=== PATIENT | male | born 1930 | race Caucasian/White ===

== ENCOUNTER 2017-03-30 06:38 | Inpatient (IN) | payer OTHER ==
[~2017-03-30] VITALS: Ht 177.8 cm; Wt 77.7 kg
--- NOTE | ~2017-03-30 | PR ---
[place], [place] PROGRESS NOTE NAME: [id number] UNIT #: [id number] ROOM: 404 DOCTOR: DALTON ROMERO MD BIRTHDATE: [birth year] DOS: SUBJECTIVE: The patient is sitting up in chair. Denies any specific cardiac complaint. No chest pain, no chest pressure, no symptomatic palpitation, no shortness of breath. OBJECTIVE: VITAL SIGNS: Blood pressure is 154/77, heart rate 69, respiratory rate of 14 and temperature 97.2. NECK: Good upstroke, no bruit. HEART: S1, S2 with no rub. LUNGS: Clear to auscultation. EXTREMITIES: Lower extremities, there is no edema. LABORATORY DATA: White count 5.4, hemoglobin 14.5. Hemoglobin A1c is 5.1. GFR more than 60%. Normal liver function test. TSH 5.370. CPK and CK-MB are normal. Troponin measure 0.9, then 0.9, then 0.7, then 0.5 and then 0.3. Echocardiogram confirmed normal LV function with no evidence of wall motion abnormalities. ASSESSMENT AND PLAN: The patient presentation with feeling weak and tired, having no energy. Cardiac enzymes showed a slightly elevated troponin with normal CK-MB. The patient's echocardiogram showed normal LV function with no evidence of wall motion abnormalities. Given the patient's age and frail status, I will manage medically and we will continue with Coreg at current dose. The patient's heart rate does not allow further titration. I will add Imdur 30 mg once a day. No further cardiac testing will be pursued at this time. The patient can be discharged home from a cardiac point of view. Early follow up with us in the clinic within 2-4 weeks as an outpatient. DALTON ROMERO MD CM:WILFRID [id number] [phone] DALTON ROMERO MD 03/31/171056 interface
--- NOTE | ~2017-03-30 | CON ---
[place], [place] REPORT OF CONSULTATION NAME: ALEJANDRO GILBERT UNIT #: [id number] ROOM: 404 DOCTOR: HEATHER FRASERDALTON BIRTHDATE: [birth year] DOS: 03/30/2017 REQUESTING PHYSICIAN: Dr. Ash. REASON FOR CONSULTATION: Abnormal cardiac enzymes. ASSESSMENT: 1. Current presentation for feeling not well/"I'm hurting." 2. Elevated troponin with normal CPK and MB 3. History of cerebrovascular accident. 4. History of deep venous thrombosis. 5. Hypertension. 6. Dementia (The patient is a poor historian and most of the history taken from his ). 7. History of abdominal aortic aneurysm repair in [address] Quesada. 8. Status post IVC filter following the patient's DVT. PLAN: 1. Cycle cardiac enzymes. 2. Proceed with echocardiogram for a wall motion abnormality and LV function. 3. Check sed rate, CBC. 4. No further cardiac testing at this time. 5. We will pursue a conservative management in view of the patient's advanced age and clinical status and current history of dementia. HISTORY AND PHYSICAL: The patient is a pleasant 86-year-old gentleman well known to my practice. The patient carries history of DVT and IVC filter. The patient was brought in to the hospital by his after getting up this morning and claiming like he does not feel well and requesting to be present to the hospital. On presentation, the patient was found out to have a slightly elevated troponin and subsequently was admitted. At no time, he had any complaint of chest pain, chest pressure, heaviness or tightness. The patient never voiced any symptomatic palpitation. He has a very limited functional capacity and confined to the house, but still within his usual normal limits. There is no change in what he could do now compared with 6 months ago. No reported fever, chills or night sweats. No dizziness, lightheadedness or near syncope. There is no PND, orthopnea or pedal edema. Overall, his appetite is still the same. No cough, no fever, no chills, no night sweats. PAST MEDICAL HISTORY: As detailed in my assessment. SOCIAL HISTORY: No current tobacco, alcohol, or illicit drug abuse. FAMILY HISTORY: Not applicable in view of patient's age. CURRENT MEDICATIONS: Vitamin D, Zoloft, Plavix, aspirin, Coreg, Rocephin. ALLERGIES: The patient is allergic to PENICILLIN and SULFA. REVIEW OF SYSTEMS: Not performed. The patient though denies any headache, [place], [place] REPORT OF CONSULTATION NAME: ALEJANDRO GILBERT UNIT #: [id number] ROOM: 404 DOCTOR: DALTON ROMERO MD BIRTHDATE: [birth year] diplopia or blurry vision. No fever, no chills, no night sweats. No abdominal pain, no bright blood per rectum, no tarry stools. The patient admits to joint pain and muscular pain. No reported anxiety or depression. No polyuria, no polydipsia, no skin rash. Review of all other systems has been negative. PHYSICAL EXAMINATION: GENERAL: The patient is alert, oriented x3, quite pleasant. He is sitting up in a chair, does not appear in any distress. VITAL SIGNS: Blood pressure 149/80, heart rate 54, respiratory rate of 14, temperature 98. HEENT: Extraocular muscles intact. Pupils equal, round, reactive to light. Conjunctivae, present pallor. Throat: No petechiae. NECK: Good upstroke. Bruits could be heard over the carotids. HEART: S1, S2 with holosystolic murmur in the left upper sternal border. CHEST AND BACK: No deformities. LUNGS: Significant decreased air movement, but no salma wheezing or rales. ABDOMEN: Soft, nontender, present bowel sounds, no masses, no bruits. LOWER EXTREMITIES: There is no edema, with faint distal pulses. NEUROLOGIC: Grossly nonfocal. SKIN: No significant rash. Electrocardiogram showed normal sinus rhythm, heart rate of 61. There is poor R-wave progression, mild nonspecific ST-T changes, low voltage QRS. LABORATORY DATA: D-dimer of 13. White count 6.1, hemoglobin 15.7, potassium 4.3, creatinine is 1.06, BUN 14. GFR more than 60%. Troponin 0.955. ProBNP 815. Repeat troponin 0.97 and subsequent repeat 0.75. Normal CPK and MB. Lipase 592. DALTON ROMERO MD CM:CONSTR:REPORT OF CONSULTATION 1609 03/31/17 0019 interface
[~2017-03-30 06:38] MED LIST: ALDACTONE25 MG PO; ASPIR 8181 MG PO; CARVEDILOL6.25 MG PO; CIPRO500 MG PO; CLINDAMYCIN300 MG PO; COLACE100 MG PO; COREG12.5 MG PO; DIFLUCAN100 MG PO; DUONEB 3 MG/3 ML3 M1 INH; K-DUR 20MEQ20 MEQ PO; LANOXIN0.125 MG PO; LIPITOR10 MG PO; LOVENOX EASYINJ1 DEV SC; MIRALAX17 GM/DOSE PO; NORVASC5 MG; PERCOCET 500 MG1 TAB PO; PLAVIX75 MG PO; SERTRALINE HYDR25 MG PO; TERAZOSIN5 MG; TYLENOL325 M2 PO; VITAMIN D-32000 UNIT PO; VITAMIN D50000 I3 PO; XANAX0.25 MG PO; ZOCOR20 MG PO; ZOCOR40 MG PO; ZOFRAN4 MG PO; ZOLOFT25 MG PO
[2017-03-30 06:43] VITALS: BP 191/93
[2017-03-30 07:09] LABS: BILIRUBIN NEGATIVE (NEGATIVE); BLOOD 2+ (NEGATIVE); CLARITY CLEAR (CLEAR); COLOR YELLOW (YELLOW); GLUCOSE NEGATIVE (NEGATIVE); KETONE NEGATIVE (NEGATIVE); LEUKO ESTERASE 1+ (NEGATIVE); NITRITE NEGATIVE (NEGATIVE); PH 6.5 (5.0-9.0); PROTEIN 1+ (NEGATIVE); SPECIFIC GRAVITY 1.015 (1.005-1.030); UROBILINOGEN 0.2 E.U./dl (0.2-1.0)
[2017-03-30 07:11] LABS: BASO % 0.7 % (0.0-1.0); EOS # 0.3 10*3/uL (0.0-0.4); EOS % 4.4 % (1.0-4.0); HEMATOCRIT 47.2 % (42.0-52.0); HEMOGLOBIN 15.7 g/dl (14.0-18.0); LYMPH % 16.7 % (27.0-41.0); MEAN CELL VOLUME 93.3 fl (80.0-94.0); MEAN CORPUSCULAR HGB CONC 33.3 g/dl (33.0-37.0); MEAN PLATELET VOLUME 10.3 fl (9.6-12.3); MONO # 0.5 10*3/uL (0.1-1.0); MONO % 8.2 % (3.0-9.0); NEUT # 4.3 10*3/uL (2.3-7.9); NEUT % 69.7 % (47.0-73.0); PLATELET COUNT AUTOMATED 134 10*3/uL (130-400); RED BLOOD COUNT 5.06 10*6/uL (4.50-5.90); RED CELL DISTRI WIDTH 13.2 % (0-14.5); WHITE BLOOD COUNT 6.1 10*3/uL (4.8-10.8)
[2017-03-30 07:20] LABS: PROTHROMBIN TIME 10.3 SECONDS (9.0-12.4)
[2017-03-30 07:21] LABS: URINE REFLEX COMMENT YES (NO)
[2017-03-30 07:24] VITALS: BP 184/86
[2017-03-30 07:29] LABS: ALBUMIN 3.7 gm/dl (3.1-4.5); ALKALINE PHOSPHATASE 130 U/L (45-117); BILIRUBIN, TOTAL 0.4 mg/dl (0.2-1.0); BUN 14 mg/dl (7-24); CARBON DIOXIDE 33 mmol/L (21-32); CHLORIDE 105 mmol/L (98-107); EST GLOM FILT AFRICAN AMERICAN > 60 ml/min; GLUCOSE 91 mg/dL (65-99); POTASSIUM 4.3 mmol/L (3.5-5.1); SGOT/AST 23 IU/L (3-35); SGPT/ALT 16 U/L (12-78); SODIUM 141 mmol/L (136-145); TOTAL PROTEIN 7.6 gm/dL (6.4-8.2)
[2017-03-30 07:34] LABS: TROPONIN I 0.955 ng/ml (<0.045)
[2017-03-30 08:40] VITALS: BP 181/80
[2017-03-30 11:02] LABS: CKMB 3.3 ng/ml (0.5-3.6)
[2017-03-30 12:00] VITALS: BP 163/66
[2017-03-30 16:00] VITALS: BP 149/80
[2017-03-30 16:40] LABS: CKMB 2.9 ng/ml (0.5-3.6)
[2017-03-30 16:42] LABS: TROPONIN I 0.568 ng/ml (<0.045)
[2017-03-30 20:00] VITALS: BP 155/90
[2017-03-30 22:25] LABS: CKMB 2.3 ng/ml (0.5-3.6)
[2017-03-30 22:29] LABS: TROPONIN I 0.353 ng/ml (<0.045)
[2017-03-31] VITALS: BP 154/77
[2017-03-31 06:12] LABS: BASO % 0.7 % (0.0-1.0); EOS # 0.2 10*3/uL (0.0-0.4); EOS % 3.2 % (1.0-4.0); HEMATOCRIT 42.6 % (42.0-52.0); HEMOGLOBIN 14.5 g/dl (14.0-18.0); LYMPH # 1.1 10*3/uL (1.3-4.4); LYMPH % 21.2 % (27.0-41.0); MEAN CORPUSCULAR HGB 31.7 pg (27.0-31.0); MEAN PLATELET VOLUME 10.6 fl (9.6-12.3); MONO # 0.4 10*3/uL (0.1-1.0); NEUT # 3.6 10*3/uL (2.3-7.9); NEUT % 66.7 % (47.0-73.0); PLATELET COUNT AUTOMATED 126 10*3/uL (130-400); RED BLOOD COUNT 4.58 10*6/uL (4.50-5.90); RED CELL DISTRI WIDTH 13.2 % (0-14.5); WHITE BLOOD COUNT 5.4 10*3/uL (4.8-10.8)
[2017-03-31 06:33] LABS: HEMOGLOBIN A1c 5.1 % (4.8-5.6)
[2017-03-31 06:42] LABS: ALBUMIN 3.3 gm/dl (3.1-4.5); BILIRUBIN, TOTAL 0.5 mg/dl (0.2-1.0); BUN 12 mg/dl (7-24); CARBON DIOXIDE 30 mmol/L (21-32); CHLORIDE 104 mmol/L (98-107); CHOLESTEROL 174 mg/dL (<200); EST GLOM FILT AFRICAN AMERICAN > 60 ml/min; GLUCOSE 85 mg/dL (65-99); SGOT/AST 23 IU/L (3-35); SGPT/ALT 14 U/L (12-78); SODIUM 141 mmol/L (136-145); TRIGLYCERIDES 144 mg/dl (<150); VLDL CHOLESTEROL 29 mg/dL (6-40)
[2017-03-31 06:50] LABS: ALKALINE PHOSPHATASE 111 U/L (45-117); FREE T4 0.89 ng/dl (0.76-1.46); HDL CHOLESTEROL 32 mg/dl (40-60); LDL CHOLESTEROL 113 mg/dL (9-159); TOTAL PROTEIN 6.8 gm/dL (6.4-8.2)
[2017-03-31 12:00] VITALS: BP 162/74
[2017-03-31 13:09] LABS: FOLIC ACID 6.16 ng/mL (>5.38); VITAMIN D, 25-HYDROXY 38.2 ng/mL (30-100)
== END 2017-03-31 14:03 | disposition short-term general hospital (02) | DRG 690 ==
LOC: ED 06:38 → EDHOLD 07:57 → 4E 07:57
PROVIDERS: Emergency Medicine Emergency Medical Services; Internal Medicine; Internal Medicine Cardiovascular Disease
DX: N39.0 Urinary tract infection, site not specified (principal); I11.0 Hypertensive heart disease with heart failure; F03.90 Unspecified dementia, unspecified severity, without behavioral disturbance, psychotic disturbance, mood disturbance, and anxiety; I50.22 Chronic systolic (congestive) heart failure; I77.9 Disorder of arteries and arterioles, unspecified; E55.9 Vitamin D deficiency, unspecified; Z96.641 Presence of right artificial hip joint; I27.2 Other secondary pulmonary hypertension; I25.10 Atherosclerotic heart disease of native coronary artery without angina pectoris; F32.9 Major depressive disorder, single episode, unspecified; Z86.73 Personal history of transient ischemic attack (TIA), and cerebral infarction without residual deficits; Z86.718 Personal history of other venous thrombosis and embolism; Z88.0 Allergy status to penicillin; Z88.2 Allergy status to sulfonamides; Z87.891 Personal history of nicotine dependence; Z80.9 Family history of malignant neoplasm, unspecified; Z82.49 Family history of ischemic heart disease and other diseases of the circulatory system; Z98.42 Cataract extraction status, left eye; Z98.41 Cataract extraction status, right eye; Z79.82 Long term (current) use of aspirin

== ENCOUNTER 2017-05-07 19:35 | Emergency (ER) | payer OTHER ==
[~2017-05-07] VITALS: Wt 72.6 kg
[2017-05-07] MEDS ORDERED: CLINDAMYCIN150 MG PO (21:03)
== END 2017-05-07 22:00 | disposition home or self-care (01) ==
LOC: ED 19:35
DX: L03.113 Cellulitis of right upper limb (principal); I25.10 Atherosclerotic heart disease of native coronary artery without angina pectoris; I11.0 Hypertensive heart disease with heart failure; I50.20 Unspecified systolic (congestive) heart failure; I50.30 Unspecified diastolic (congestive) heart failure; Z88.0 Allergy status to penicillin; Z88.2 Allergy status to sulfonamides; Z79.899 Other long term (current) drug therapy; Z86.718 Personal history of other venous thrombosis and embolism; Z79.82 Long term (current) use of aspirin

== ENCOUNTER → 2018-01-23 | Outpatient (CLI) | payer OTHER ==
[~2018-01-23] MED LIST changes: +CLINDAMYCIN150 MG PO
== END | disposition home or self-care (01) ==
LOC: RAD 12:54
DX: J43.9 Emphysema, unspecified (principal); R53.1 Weakness

== ENCOUNTER 2018-06-08 02:02 | Emergency (ER) | payer OTHER ==
[~2018-06-08] VITALS: Ht 180.3 cm; Wt 70.3 kg
[~2018-06-08 02:02] MED LIST changes: +CARVEDILOL12.5 MG PO; +IMDUR SA30 MG PO; +LOSARTAN POTASS50 M1 PO
[2018-06-08 02:36] LABS: BASO # 0.1 10*3/uL (0.0-0.1); BASO % 0.8 % (0.0-1.0); EOS # 0.2 10*3/uL (0.0-0.4); EOS % 2.9 % (1.0-4.0); HEMATOCRIT 44.5 % (42.0-52.0); HEMOGLOBIN 14.6 g/dl (14.0-18.0); LYMPH # 1.3 10*3/uL (1.3-4.4); LYMPH % 15.8 % (27.0-41.0); MEAN CELL VOLUME 93.9 fl (80.0-94.0); MEAN CORPUSCULAR HGB 30.8 pg (27.0-31.0); MEAN CORPUSCULAR HGB CONC 32.8 g/dl (33.0-37.0); MEAN PLATELET VOLUME 10.5 fl (9.6-12.3); MONO # 0.6 10*3/uL (0.1-1.0); MONO % 6.9 % (3.0-9.0); NEUT # 5.8 10*3/uL (2.3-7.9); NEUT % 73.2 % (47.0-73.0); PLATELET COUNT AUTOMATED 160 10*3/uL (130-400); RED BLOOD COUNT 4.74 10*6/uL (4.50-5.90); RED CELL DISTRI WIDTH 13.2 % (0-14.5); WHITE BLOOD COUNT 7.9 10*3/uL (4.8-10.8)
[2018-06-08 02:40] LABS: BILIRUBIN NEGATIVE (NEGATIVE); BLOOD 2+ (NEGATIVE); CLARITY SL CLOUDY (CLEAR); COLOR YELLOW (YELLOW); GLUCOSE NEGATIVE (NEGATIVE); KETONE NEGATIVE (NEGATIVE); LEUKO ESTERASE 1+ (NEGATIVE); NITRITE NEGATIVE (NEGATIVE); SPECIFIC GRAVITY >= 1.030 (1.005-1.030); UROBILINOGEN 0.2 E.U./dl (0.2-1.0)
[2018-06-08 02:55] LABS: ALBUMIN 3.8 gm/dl (3.1-4.5); ALKALINE PHOSPHATASE 131 U/L (45-117); BUN 14 mg/dl (7-24); CHLORIDE 107 mmol/L (98-107); CREATININE 1.19 mg/dL (0.70-1.30); POTASSIUM 3.8 mmol/L (3.5-5.1); SGOT/AST 23 IU/L (3-35); SGPT/ALT 23 U/L (12-78); SODIUM 144 mmol/L (136-145); TOTAL PROTEIN 7.6 gm/dL (6.4-8.2)
[2018-06-08 02:57] LABS: YEAST 1+
[2018-06-08 02:58] LABS: RBC TNTC rbc/hpf (0-2); WBC 16-20 wbc/hpf (0-5)
[2018-06-08] MEDS ORDERED: MACROBID100 M1 PO (03:55)
[2018-06-09] MEDS ORDERED: COREG12.5 M1 PO (17:51)
== END 2018-06-08 04:23 | disposition home or self-care (01) ==
LOC: ED 02:02
PROVIDERS: Student in an Organized Health Care Education/Training Program
DX: N39.0 Urinary tract infection, site not specified (principal); I11.0 Hypertensive heart disease with heart failure; I50.20 Unspecified systolic (congestive) heart failure; I50.30 Unspecified diastolic (congestive) heart failure; Z88.0 Allergy status to penicillin; Z88.2 Allergy status to sulfonamides; Z79.899 Other long term (current) drug therapy; Z79.82 Long term (current) use of aspirin; Z86.73 Personal history of transient ischemic attack (TIA), and cerebral infarction without residual deficits; Z86.718 Personal history of other venous thrombosis and embolism; Z87.891 Personal history of nicotine dependence

== ENCOUNTER 2018-06-09 14:36 | Inpatient (IN) | payer OTHER ==
[~2018-06-09] VITALS: Ht 180.3 cm; Wt 76.4 kg
--- NOTE | ~2018-06-09 | DS ---
[place], [place] DISCHARGE SUMMARY NAME: ALEJANDRO GILBERT [facility] #: [id number] UNIT #: [id number] ROOM: 424 DOCTOR: HEMANT RICHARDSON MD BIRTHDATE: [birth year] DOS: 06/10/2018 DISCHARGE DIAGNOSES: 1. Urinary tract infection with improved symptoms. 2. Late onset Alzheimer's type dementia. 3. Major depression, recurrent. 4. 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 5. Chronic obstructive pulmonary disease and pulmonary hypertension. 6. Ambulatory dysfunction. 7. Benign essential hypertension, chronic combined systolic and diastolic type. HOSPITAL COURSE: The patient presented to the Emergency Department with burning in his urine despite of outpatient treatment, which had failed. The patient was on Macrobid and he was in severe pain whenever he urinated. The patient was admitted and started on IV Rocephin and he is feeling much better today, although he is quite confused. The patient had to be treated with Haldol for his mental confusion. His is present with him and willing to take him home. Since patient's urinary symptoms have improved, I will discharge him to home on ciprofloxacin. Urine cultures have come back as negative so far. Late onset Alzheimer's type dementia with mental confusion. The patient was treated with Haldol. Rest of the treatment to be by his PCP as an outpatient. The patient is to follow up with Dr. David Stewart on Monday. Coronary artery disease of the [place] vessels without chest pains. The patient remains on aspirin, Plavix and Imdur. Benign essential hypertension, treated and controlled. The patient is on losartan. Major depression, recurrent, mild, treated with Zoloft, asymptomatic. 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 The patient on Coreg, which was continued. Benign essential hypertension, treated and controlled. LABORATORY DATA: 1. Urine and blood cultures were all negative. 2. No leukocytosis on CBC. Normal serum electrolytes. DISCHARGE MANAGEMENT: Ciprofloxacin 500 mg twice a day for a week, Tylenol p.r.n., Coreg 12.5 mg b.i.d., aspirin 81 mg a day, Plavix 75 mg a day, Imdur 30 mg a day, losartan 50 mg a day, Zoloft 50 mg a day. Follow up with PCP on Monday. [place], [place] DISCHARGE SUMMARY NAME: ALEJANDRO GILBERT UNIT #: [id number] ROOM: 424 DOCTOR: DYLAN FRASER,HEMANT Jean BIRTHDATE: [birth year] HEMANT RICHARDSON MD CM:AYALA [id number] HEMANT RICHARDSON MD 06/11/18 0146 interface
--- NOTE | ~2018-06-09 | WRIGHTHP ---
[place], [place] PATIENT HISTORY AND PHYSICAL EXAM NAME: ALEJANDRO GILBERT [facility] #: [id number] UNIT #: [id number] ROOM: 424 DOCTOR: HEMANT RICHARDSON MD BIRTHDATE: [birth year] DOS: 06/09/2018 HISTORY OF PRESENT ILLNESS: The patient is an 87-year-old gentleman with failed outpatient treatment for urinary tract infection. The patient has a past medical history of: 1. Benign essential hypertension, chronic combined systolic/diastolic type congestive heart failure. 2. Right hemiparesis and adult failure to thrive. 3. Ambulatory dysfunction. The patient walks with the help of a walker. 4. Late onset Alzheimer's type dementia. 5. Pulmonary hypertension. 6. History of deep vein thrombosis in the past. 7. Major depression, recurrent. 8. 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 The patient presented to the Emergency Department with failed outpatient treatment of urinary tract infection with symptoms of pain and burning in urination. The patient was already on Macrobid as an outpatient for treatment. The patient was evaluated in the Emergency Department and recommended for admission and further management. After admission, the patient complaining of some pain on urination and difficulty, but his bladder scan did not show any urinary retention after admission. No complaints of chest pain, no increasing shortness of breath, but he does have chronic complaints of shortness of breath, no GI or urinary symptoms. REVIEW OF SYSTEMS: RESPIRATORY: No increasing shortness of breath. GASTROINTESTINAL: No nausea, vomiting, diarrhea or constipation. CARDIOVASCULAR: No chest pains or palpitations. FAMILY HISTORY: Noncontributory. ALLERGIES: Known allergies to PENICILLIN and SULFUR. HOME MEDICATIONS: Zoloft, losartan, Imdur, Plavix, aspirin, Coreg and Macrobid. PHYSICAL EXAMINATION: GENERAL: Alert and oriented x 3, very hard of hearing, in no visible distress. Generalized weakness. IMPRESSION: 1. The patient with urinary tract infection resistant to outpatient treatment and failed outpatient treatment, now to be treated with Rocephin. Urine cultures are pending. 2. Difficulty with urination, burning and pain. Bladder scan after admission shows no urine retention. 3. Major depression, recurrent, mild, treated and controlled with Zoloft. 4. Benign essential hypertension, treated with losartan. 5. History of coronary artery disease of the [place] vessels without any angina symptoms. The patient continued on Imdur, Plavix and aspirin. He also takes Coreg. [place], [place] PATIENT HISTORY AND PHYSICAL EXAM NAME: ALEJANDRO GILBERT UNIT #: [id number] ROOM: [facility] DOCTOR: DYLAN FRASER,HEMANT Jean BIRTHDATE: [birth year] 6. Combined systolic, diastolic type congestive heart failure without any increase in shortness of breath. Continued on Coreg. 7. Benign essential hypertension, treated and controlled. 8. Advance adult failure to thrive and ambulatory dysfunction. The patient ambulates with the help of a walker and also has remote history of stroke and right hemiparesis. I have consulted physical therapy to follow him. HEMANT RICHARDSON MD CM:HISPHYS:PATIENT HISTORY AND PHYSICAL EXAMINATION 06 45 HEMANT RICHARDSON MD 06/09/181945 interface
[~2018-06-09 14:36] MED LIST changes: +MACROBID100 M1 PO
[2018-06-09 14:39] VITALS: BP 147/62
[2018-06-09 14:57] LABS: BASO # 0.1 10*3/uL (0.0-0.1); BASO % 0.6 % (0.0-1.0); EOS # 0.2 10*3/uL (0.0-0.4); HEMATOCRIT 47.2 % (42.0-52.0); HEMOGLOBIN 15.4 g/dl (14.0-18.0); LYMPH % 13.1 % (27.0-41.0); MEAN CELL VOLUME 93.5 fl (80.0-94.0); MEAN CORPUSCULAR HGB 30.5 pg (27.0-31.0); MEAN CORPUSCULAR HGB CONC 32.6 g/dl (33.0-37.0); MEAN PLATELET VOLUME 10.2 fl (9.6-12.3); MONO # 0.4 10*3/uL (0.1-1.0); MONO % 4.7 % (3.0-9.0); NEUT # 6.2 10*3/uL (2.3-7.9); NEUT % 78.3 % (47.0-73.0); PLATELET COUNT AUTOMATED 169 10*3/uL (130-400); RED BLOOD COUNT 5.05 10*6/uL (4.50-5.90); RED CELL DISTRI WIDTH 13.2 % (0-14.5)
[2018-06-09 15:06] LABS: ACT PARTIAL THROMBO TIME 22.8 SECONDS (20.8-31.5); INTERNATIONAL NORM RATIO 0.9 (2.0-3.5)
[2018-06-09 15:14] LABS: ALKALINE PHOSPHATASE 132 U/L (45-117); BUN 16 mg/dl (7-24); CHLORIDE 105 mmol/L (98-107); POTASSIUM 4.3 mmol/L (3.5-5.1); SGOT/AST 25 IU/L (3-35); SGPT/ALT 23 U/L (12-78); SODIUM 141 mmol/L (136-145); TOTAL PROTEIN 7.8 gm/dL (6.4-8.2)
[2018-06-09 15:15] LABS: TROPONIN I < 0.015 ng/ml (<0.045)
[2018-06-09 15:52] LABS: BILIRUBIN NEGATIVE (NEGATIVE); BLOOD 2+ (NEGATIVE); CLARITY SL CLOUDY (CLEAR); COLOR YELLOW (YELLOW); GLUCOSE NEGATIVE (NEGATIVE); KETONE NEGATIVE (NEGATIVE); LEUKO ESTERASE 2+ (NEGATIVE); NITRITE NEGATIVE (NEGATIVE); SPECIFIC GRAVITY 1.025 (1.005-1.030); UROBILINOGEN 0.2 E.U./dl (0.2-1.0)
[2018-06-09 15:58] LABS: RBC TNTC rbc/hpf (0-2); WBC TNTC wbc/hpf (0-5)
[2018-06-09 15:59] LABS: BACTERIA 2+; EPITHELIAL CELLS 0-2; MUCOUS TRACE; YEAST 1+
[2018-06-09 16:19] VITALS: BP 139/69
[2018-06-09 17:22] VITALS: BP 140/79
[2018-06-09 17:27] VITALS: BP 161/71
[2018-06-09] MEDS ORDERED: COREG12.5 M1 PO (17:51)
[2018-06-09 19:25] VITALS: BP 152/78
[2018-06-09 20:00] VITALS: BP 142/67
[2018-06-10 06:41] LABS: BASO # 0.1 10*3/uL (0.0-0.1); BASO % 0.7 % (0.0-1.0); EOS # 0.3 10*3/uL (0.0-0.4); EOS % 3.3 % (1.0-4.0); HEMATOCRIT 42.9 % (42.0-52.0); HEMOGLOBIN 13.9 g/dl (14.0-18.0); LYMPH # 1.2 10*3/uL (1.3-4.4); LYMPH % 13.7 % (27.0-41.0); MEAN CELL VOLUME 94.5 fl (80.0-94.0); MEAN CORPUSCULAR HGB 30.6 pg (27.0-31.0); MEAN CORPUSCULAR HGB CONC 32.4 g/dl (33.0-37.0); MONO # 0.6 10*3/uL (0.1-1.0); MONO % 7.3 % (3.0-9.0); NEUT # 6.4 10*3/uL (2.3-7.9); NEUT % 74.8 % (47.0-73.0); PLATELET COUNT AUTOMATED 173 10*3/uL (130-400); RED BLOOD COUNT 4.54 10*6/uL (4.50-5.90); RED CELL DISTRI WIDTH 13.2 % (0-14.5); WHITE BLOOD COUNT 8.5 10*3/uL (4.8-10.8)
[2018-06-10 06:58] LABS: BUN 16 mg/dl (7-24); CHLORIDE 105 mmol/L (98-107); CREATININE 1.15 mg/dL (0.70-1.30); POTASSIUM 4.2 mmol/L (3.5-5.1); SODIUM 140 mmol/L (136-145)
[2018-06-10 08:00] VITALS: BP 123/78
[2018-06-10 12:00] VITALS: BP 113/60
[2018-06-10 16:00] VITALS: BP 141/70
[2018-06-10] MEDS ORDERED: CIPRO500 MG PO (16:43)
== END 2018-06-10 17:28 | disposition home or self-care (01) | DRG 690 ==
LOC: ED 14:36 → EDHOLD 16:09 → 4E 16:46
PROVIDERS: Internal Medicine; Nurse Practitioner Family
DX: N30.01 Acute cystitis with hematuria (principal); I50.42 Chronic combined systolic (congestive) and diastolic (congestive) heart failure; F33.0 Major depressive disorder, recurrent, mild; I69.351 Hemiplegia and hemiparesis following cerebral infarction affecting right dominant side; I11.0 Hypertensive heart disease with heart failure; I25.10 Atherosclerotic heart disease of native coronary artery without angina pectoris; R62.7 Adult failure to thrive; R26.89 Other abnormalities of gait and mobility; J44.9 Chronic obstructive pulmonary disease, unspecified; G30.1 Alzheimer's disease with late onset; Z96.641 Presence of right artificial hip joint; F02.80 Dementia in other diseases classified elsewhere, unspecified severity, without behavioral disturbance, psychotic disturbance, mood disturbance, and anxiety; I27.20 Pulmonary hypertension, unspecified; Z88.0 Allergy status to penicillin; Z88.2 Allergy status to sulfonamides; Z98.42 Cataract extraction status, left eye; Z98.41 Cataract extraction status, right eye; Z86.718 Personal history of other venous thrombosis and embolism; Z87.891 Personal history of nicotine dependence; Z80.9 Family history of malignant neoplasm, unspecified

== ENCOUNTER 2018-07-16 20:31 | Inpatient (IN) | payer OTHER ==
[~2018-07-16] VITALS: Ht 180.3 cm; Wt 69.9 kg
--- NOTE | ~2018-07-16 | PR ---
[place], [place] PROGRESS NOTE NAME: ALEJANDRO GILBERT UNIT #: [id number] ROOM: 524 DOCTOR: SHARMAINE LITTLE MD BIRTHDATE: [birth year] DOS: SUBJECTIVE: The patient is much more awake and alert this morning, but still pleasantly confused. OBJECTIVE: VITAL SIGNS: Graphic trend shows a pressure of 126/65, pulse of 58, respirations 20, temperature 97.8. LUNGS: Clear. HEART: Regular. ABDOMEN: Obese, soft, nontender. EXTREMITIES: Without any edema. LABORATORY DATA: Intake, output for the last 24 hours shows about 670 of urine output on the last shift, which has picked up since admission. Urine culture shows gram-positive cocci, no identification available yet. ASSESSMENT AND PLAN: 1. Falls with adult failure to thrive. The patient's family has refused snf placement. PT/OT has been consulted. 2. Urinary tract infection with Gram-positive cocci. Identification is not available yet. Once we have identification if we can treat that with the p.o. antibiotic, the patient will be discharged to home. SHARMAINE LITTLE MD CM:PNTRANS 0 SHARMAINE LITTLE MD 07/18/18911 interface
--- NOTE | ~2018-07-16 | PR ---
[place], [place] PROGRESS NOTE NAME: ALEJANDRO GILBERT UNIT #: [id number] ROOM: 524 DOCTOR: SHARMAINE LITTLE MD BIRTHDATE: [birth year] DOS: SUBJECTIVE: The patient is about the same, does not have any new changes. OBJECTIVE: VITAL SIGNS: Graphic trend shows a pressure 129/66, pulse of 68, respirations 20, temperature 97.9. LUNGS: Clear. HEART: Regular. ABDOMEN: Obese. EXTREMITIES: Without any edema, indwelling Durán catheter present. LABORATORY DATA: Urine culture showing Staph epidermidis. White cell count is 6.7, hemoglobin 9.7, hematocrit 30.1, platelets 149. BMP: Glucose 84, BUN 14, creatinine 0.83, sodium 143, potassium 4.3, chloride 110, bicarbonate 23. ASSESSMENT AND PLAN: 1. The patient who presents with change in mental status and metabolic encephalopathy, most likely from underlying UTI, has chronic indwelling Durán. It is best not to treat this patient with too many antibiotics in case he develops resistant bacteria. 2. Hypokalemia. Supplementation is ordered. 3. Adult failure to thrive. The patient's family wants to take him home. He is an extremely poor candidate for home. Unfortunately, his dementia is too bad for him to live at home with his who is also elderly. He may require placement. The family has resisted that and refused. We will discharge to home today. SHARMAINE LITTLE MD CM:PNTRANS [id number] SHARMAINE LITTLE MD 07/19/18 1542 interface
--- NOTE | ~2018-07-16 | DS ---
[place], [place] DISCHARGE SUMMARY [id number] UNIT #: [id number] ROOM: 524 DOCTOR: SHARMAINE LITTLE MD BIRTHDATE: [birth year] DOS: 07/19/2018 The patient was admitted to the hospital on 07/16/2018, discharged on 07/19/2018. DIAGNOSES: 1. Metabolic encephalopathy. 2. Hypokalemia. 3. 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 4. Urinary tract infection with Staphylococcus epidermidis. 5. Alzheimer's dementia, late onset with adult failure to thrive. 6. History of deep venous thrombosis. 7. Major depression, mild. 8. History of cerebrovascular accident with carotid artery disease. 9. Benign hypertension. This patient is not known to me, 87 years old with multiple admissions to the hospital. He also spent a few days in [facility] in [place], was discharged to home, was home for a week, was brought back here because the patient's family felt that he was increasingly weak. After being evaluated in the ER, he was admitted. He was already on Macrobid for UTI. He had extremely poor urine output, the first 48 hours, was given vigorous IV hydration and with that he has finally started diuresing well. He has hypokalemia, was supplemented. Urine culture showed Staphylococcus epidermidis. He has a chronic indwelling Durán catheter, so we will give him Zyvox 600 b.i.d. for 5 days. The hospital pharmacy will distribute the medication. The patient is not a candidate to be discharged home, but the family is insisting that he could be discharged. He is 87 and has dementia and has delirium with confusion and he is not cooperative at all, so this patient really needs placement. Unfortunately, the family has decided to take him home, visiting nurses will be consulted at discharge. DISCHARGE MEDICATIONS: Will be Zyvox 600 b.i.d. for 5 days, aspirin 81 daily, sertraline 50 daily, Coreg 6.25 b.i.d., trospium 20 b.i.d., losartan 25 daily, tamsulosin 0.4 daily, finasteride 5 daily, Vistaril 25 q. 6 p.r.n., vitamin D 2000 units daily, iron 325 daily, lactobacillus 1 tablet b.i.d. [place], [place] DISCHARGE SUMMARY NAME: ALEJANDRO GILBERT UNIT #: [id number] ROOM: 524 DOCTOR: SHARMAINE LITTLE MD BIRTHDATE: [birth year] SHARMAINE LITTLE MD CM:AYALA 5 8 SHARMAINE LITTLE MD 07/19/1852 interface
--- NOTE | ~2018-07-16 | EKG ---
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
--- NOTE | ~2018-07-16 | WRIGHTHP ---
[place], [place] PATIENT HISTORY AND PHYSICAL EXAM [id number] UNIT #: [id number] ROOM: 524 DOCTOR: SHARMANIE LITTLE MD BIRTHDATE: [birth year] DOS: 07/16/2018 HISTORY OF PRESENT ILLNESS: This patient is 87 years old, not known to me. The patient was recently admitted to the hospital early this month to [facility] for chronic bladder problems and had a Durán catheter placed and was sent to [facility] for rehabilitation. He was there for a week and then was discharged. He has been home for a week now and has fall yesterday, so was brought to the Emergency Room. The patient's history was mostly obtained from his . He has been increasingly weak since being released and has had multiple falls. He denies having any chest pains or palpitations. In the morning, he is quite confused and slaps at you when you try to examine him, he does not seem to want to cooperate. PAST MEDICAL HISTORY: Significant for; 1. Benign hypertension. 2. Alzheimer's dementia, late onset. 3. Adult failure to thrive. 4. History of deep venous thrombosis. 5. Major depression, recurrent. 6. History of cerebrovascular accident. 7. Carotid artery disease and history of UTI, chronic prostatism, chronic indwelling Durán catheter. MEDICATIONS: Medications that he is on are Coreg 6.25 twice a day, vitamin D 2000 units daily, iron 325 daily, finasteride 5 daily, hydroxyzine 25 q.6 p.r.n., acidophilus 1 tablet b.i.d., losartan 25 daily, sertraline 50 mg daily, tamsulosin 0.4 daily, trospium 20 b.i.d. SOCIAL HISTORY: Nonsmoker, does not use any alcohol. Lives at home with his and son. PHYSICAL EXAMINATION: GENERAL: He is awake, but does not answer any questions appropriately. VITAL SIGNS: Blood pressure is 119/61, pulse of 76, respirations 20, temperature 98.1. LUNGS: Clear. HEART: Regular. ABDOMEN: Obese, soft, nontender. EXTREMITIES: Without any edema. Durán catheter draining clear urine. LABORATORY DATA: Shows a WBC count is 7.5, hemoglobin 10.8, hematocrit 33.0, platelets 154. Comprehensive glucose 87, BUN 20, creatinine 1.04. Sodium 143, potassium 3.3, and chloride 104. ASSESSMENT AND PLAN: 1. Adult failure to thrive with multiple falls. PT/OT and social service consult has been obtained. Discussed with the patient's , she does not want him placed back in a custodial, she would rather take him home. We will wait for PT evaluation to decide on that. 2. Hypokalemia. Supplementation was ordered. [place], [place] PATIENT HISTORY AND PHYSICAL EXAM NAME: ALEJANDRO GILBERT UNIT #: [id number] ROOM: 524 DOCTOR: SHARMAINE LITTLE MD BIRTHDATE: [birth year] 3. Possible urinary tract infection. Urine culture will be sent. IV antibiotics started. 4. Metabolic encephalopathy, multifactorial. 5. Alzheimer's dementia, late onset. Continue with supportive and symptomatic care. His home medications have been continued. SHARMAINE LITTLE MD CM:HISPHYS:PATIENT HISTORY AND PHYSICAL EXAMINATION 0940 SHARMAINE LITTLE MD 07/17/18 0252 interface
[2018-07-16 20:31] VITALS: BP 130/56
[~2018-07-16 20:31] MED LIST changes: +COREG12.5 M1 PO
[2018-07-16] MEDS ORDERED: TROSPIUM CHLORI20 M1 PO (20:52)
[2018-07-16] MEDS ORDERED: COZAAR25 M1 PO (20:53)
[2018-07-16] MEDS ORDERED: FLOMAX0.4 MG PO (20:55)
[2018-07-16 20:56] LABS: BILIRUBIN 1+ (NEGATIVE); BLOOD 2+ (NEGATIVE); CLARITY SL CLOUDY (CLEAR); COLOR YELLOW (YELLOW); GLUCOSE NEGATIVE (NEGATIVE); KETONE 2+ (NEGATIVE); LEUKO ESTERASE 2+ (NEGATIVE); NITRITE NEGATIVE (NEGATIVE); SPECIFIC GRAVITY 1.015 (1.005-1.030); UROBILINOGEN 0.2 E.U./dl (0.2-1.0)
[2018-07-16] MEDS ORDERED: PROSCAR5 M1 PO (20:56)
[2018-07-16] MEDS ORDERED: VISTARIL25 MG PO (20:57)
[2018-07-16] MEDS ORDERED: VITAMIN D32000 UNIT PO (20:58)
[2018-07-16] MEDS ORDERED: NITROFURANTOIN100 M9 PO (20:58)
[2018-07-16] MEDS ORDERED: FERRO-TIME325 MG PO (21:01)
[2018-07-16 21:02] LABS: BASO # 0.1 10*3/uL (0.0-0.1); BASO % 0.8 % (0.0-1.0); EOS # 0.8 10*3/uL (0.0-0.4); EOS % 11.1 % (1.0-4.0); HEMOGLOBIN 10.8 g/dl (14.0-18.0); LYMPH # 0.8 10*3/uL (1.3-4.4); LYMPH % 10.7 % (27.0-41.0); MEAN CORPUSCULAR HGB 30.4 pg (27.0-31.0); MEAN CORPUSCULAR HGB CONC 32.7 g/dl (33.0-37.0); MONO # 0.5 10*3/uL (0.1-1.0); MONO % 6.4 % (3.0-9.0); NEUT # 5.3 10*3/uL (2.3-7.9); NEUT % 70.6 % (47.0-73.0); PLATELET COUNT AUTOMATED 154 10*3/uL (130-400); RED BLOOD COUNT 3.55 10*6/uL (4.50-5.90); RED CELL DISTRI WIDTH 14.1 % (0-14.5); WHITE BLOOD COUNT 7.5 10*3/uL (4.8-10.8)
[2018-07-16] MEDS ORDERED: ACIDOPHILUS1 EAC4 PO (21:02)
[2018-07-16 21:07] LABS: BACTERIA 3+; YEAST 2+
[2018-07-16 21:08] LABS: WBC 51-100 wbc/hpf (0-5)
[2018-07-16 21:09] LABS: EPITHELIAL CELLS 0-2; RBC 31-40 rbc/hpf (0-2)
[2018-07-16 21:10] LABS: ACT PARTIAL THROMBO TIME 23.5 SECONDS (20.8-31.5)
[2018-07-16 21:21] LABS: ALBUMIN 2.9 gm/dl (3.1-4.5); ALKALINE PHOSPHATASE 81 U/L (45-117); BUN 20 mg/dl (7-24); CHLORIDE 104 mmol/L (98-107); CREATININE 1.04 mg/dL (0.70-1.30); POTASSIUM 3.3 mmol/L (3.5-5.1); SGOT/AST 26 IU/L (3-35); SGPT/ALT 18 U/L (12-78); SODIUM 143 mmol/L (136-145); TOTAL PROTEIN 6.5 gm/dL (6.4-8.2); TROPONIN I 0.039 ng/ml (<0.045)
[2018-07-16 23:00] VITALS: BP 108/55
[2018-07-17] VITALS: BP 119/61
[2018-07-17 08:00] VITALS: BP 110/56
[2018-07-17 12:00] VITALS: BP 126/88
[2018-07-17 16:00] VITALS: BP 124/66
[2018-07-17 20:00] VITALS: BP 119/67
[2018-07-18] VITALS: BP 126/65
[2018-07-18 08:00] VITALS: BP 132/76
[2018-07-18 12:00] VITALS: BP 126/52
[2018-07-18 16:00] VITALS: BP 129/51
[2018-07-18 20:00] VITALS: BP 133/62
[2018-07-19] VITALS: BP 129/66
[2018-07-19 06:34] LABS: BUN 14 mg/dl (7-24); CHLORIDE 110 mmol/L (98-107); CREATININE 0.83 mg/dL (0.70-1.30); POTASSIUM 4.3 mmol/L (3.5-5.1); SODIUM 143 mmol/L (136-145)
[2018-07-19 06:38] LABS: BASO % 0.5 % (0.0-1.0); EOS # 0.7 10*3/uL (0.0-0.4); EOS % 10.1 % (1.0-4.0); HEMATOCRIT 30.1 % (42.0-52.0); HEMOGLOBIN 9.7 g/dl (14.0-18.0); LYMPH # 0.9 10*3/uL (1.3-4.4); LYMPH % 12.8 % (27.0-41.0); MEAN CELL VOLUME 92.9 fl (80.0-94.0); MEAN CORPUSCULAR HGB 29.9 pg (27.0-31.0); MEAN CORPUSCULAR HGB CONC 32.2 g/dl (33.0-37.0); MEAN PLATELET VOLUME 11.2 fl (9.6-12.3); MONO # 0.5 10*3/uL (0.1-1.0); MONO % 7.2 % (3.0-9.0); NEUT # 4.6 10*3/uL (2.3-7.9); NEUT % 68.6 % (47.0-73.0); PLATELET COUNT AUTOMATED 149 10*3/uL (130-400); RED BLOOD COUNT 3.24 10*6/uL (4.50-5.90); WHITE BLOOD COUNT 6.7 10*3/uL (4.8-10.8)
[2018-07-19] MEDS ORDERED: ZYVOX600 MG PO ×2 (08:51→08:52)
[2018-07-19 12:00] VITALS: BP 132/70
== END 2018-07-19 13:27 | disposition home health service (06) | DRG 689 ==
LOC: ED 20:31 → 5E 21:42 → EDHOLD 21:42 → 5E 22:24
PROVIDERS: Internal Medicine; Student in an Organized Health Care Education/Training Program
DX: N39.0 Urinary tract infection, site not specified (principal); G93.41 Metabolic encephalopathy; I50.42 Chronic combined systolic (congestive) and diastolic (congestive) heart failure; G30.1 Alzheimer's disease with late onset; I11.0 Hypertensive heart disease with heart failure; R62.7 Adult failure to thrive; N40.0 Benign prostatic hyperplasia without lower urinary tract symptoms; B95.8 Unspecified staphylococcus as the cause of diseases classified elsewhere; F32.9 Major depressive disorder, single episode, unspecified; B95.7 Other staphylococcus as the cause of diseases classified elsewhere; E87.6 Hypokalemia; I27.20 Pulmonary hypertension, unspecified; F02.80 Dementia in other diseases classified elsewhere, unspecified severity, without behavioral disturbance, psychotic disturbance, mood disturbance, and anxiety; Z96.641 Presence of right artificial hip joint; Z91.81 History of falling; Z88.0 Allergy status to penicillin; Z88.2 Allergy status to sulfonamides; Z86.718 Personal history of other venous thrombosis and embolism; Z87.440 Personal history of urinary (tract) infections; Z86.73 Personal history of transient ischemic attack (TIA), and cerebral infarction without residual deficits; Z98.42 Cataract extraction status, left eye; Z98.41 Cataract extraction status, right eye; Z87.891 Personal history of nicotine dependence; Z82.49 Family history of ischemic heart disease and other diseases of the circulatory system; Z80.9 Family history of malignant neoplasm, unspecified

== ENCOUNTER 2018-08-01 08:16 | Inpatient (IN) | payer OTHER ==
[2018-08-01] VITALS (7 sets, daily range): BP systolic 97–151; BP diastolic 56–90
[~2018-08-01] VITALS: Ht 177.8 cm; Wt 65.0 kg
--- NOTE | ~2018-08-01 | PR ---
[place], [place] PROGRESS NOTE NAME: ALEJANDRO GILBERT UNIT #: [id number] ROOM: 409 DOCTOR: HEMANT RICHARDSON MD BIRTHDATE: [birth year] DOS: SUBJECTIVE: The patient appears comfortable, unresponsive with morphine. PHYSICAL EXAMINATION: GENERAL APPEARANCE: Unresponsiveness and decreased respirations. VITAL SIGNS: Blood pressure 89/57, breathing 8 times per minute, heart rate of 77 beats per minute, fever ranging between 99-101 degrees Fahrenheit. HEENT AND NECK: Exam within normal limits. CARDIOVASCULAR SYSTEM: Heart rate is regular in rate and rhythm. S1 and S2 normally audible. LUNGS: Clear to auscultation. ABDOMEN: Soft, nontender. No obvious organomegaly. Bowel sounds are present. EXTREMITIES: Without significant cyanosis or edema. IMPRESSION: 1. The patient for end-of-life care under hospice, remains on morphine and Ativan to keep him comfortable and we are taking bedsore precautions. 2. Fever being treated with Tylenol as needed. 3. The patient has not moved his bowels, so we will use Dulcolax suppository if allowed by the family to help him move his bowels. We are taking bedsore precautions. We will continue to follow closely. HEMANT RICHARDSON MD CM:PNTRANS [id number] HEMANT RICHARDSON MD 08/04/18 0900 interface
--- NOTE | ~2018-08-01 | PR ---
[place], [place] PROGRESS NOTE NAME: ALEJANDRO GILBERT UNIT #: [id number] ROOM: 409 DOCTOR: DYLAN FRASER,HEMANT Jean BIRTHDATE: [birth year] DOS: 08/02/2018 SUBJECTIVE: The patient appears comfortable on infusion with morphine. OBJECTIVE: GENERAL APPEARANCE: The patient appears in deep sleep, nonresponsive. VITAL SIGNS: Blood pressure 111/53, heart rate of 102 beats per minute, breathing 10 times per minute, afebrile. IMPRESSION: 1. The patient with new left temporal infarct and worsening of mental functions, lethargy, shortness of breath, and now on hospice care on morphine infusion and appears comfortable and in no distress. No excessive respiratory secretions. No chest congestion. He is breathing comfortably, but very slowly and using oxygen. 2. Advanced disability and adult failure to thrive. We are taking bedsore precautions turning him every 2 hours and using an air mattress. The patient's family is present with him today and case was discussed in detail and the patient's family agrees with comfort care measures and they seemed satisfied that the patient appears comfortable. HEMANT RICHARDSON MD CM:PNTRANS [id number] HEMANT RICHARDSON MD 08/03/18 0916 interface
--- NOTE | ~2018-08-01 | DS ---
[place], [place] DISCHARGE SUMMARY NAME: ALEJANDRO GILBERT UNIT #: [id number] ROOM: 409 DOCTOR: HEMANT RICHARDSON MD BIRTHDATE: [birth year] DOS: 08/05/2018 DISCHARGE DIAGNOSES: 1. Acute over chronic left temporal infarct with altered mental status and decline in his health. The patient while under our care of hospice. 2. Advanced disability and adult failure to thrive. 3. Constipation. 4. Benign essential hypertension. 5. Cerebrovascular accident with carotid artery disease history. 6. Major depression, recurrent, mild. 7. Previous history of deep venous thrombosis. 8. Alzheimer's type dementia and adult failure to thrive. 9. Chronic urinary retention with chronically indwelling Durán catheter. The patient was brought to the Emergency Department with worsening of mental status, increased shortness of breath. HOSPITAL COURSE: The patient was pale and very weak. The patient was found to have a new left pleural infarct with evidence of previous infarcts. The patient is in poor health and the patient's family requested admission with hospice. Hospice responded quickly and saw the patient in the Emergency Department and the patient was admitted under hospice at [facility]. The patient was kept comfortable with morphine infusion and Ativan as needed. The patient's constipation was treated with Dulcolax and he remained comfortable until he on 08/05/2018. DIAGNOSES: 1. Late onset Alzheimer's type dementia and adult failure to thrive. 2. Previous history of deep venous thrombosis with no acute changes. 3. Benign essential hypertension, treated and controlled. The patient's medications at the time of discharge were morphine infusion, lorazepam IV p.r.n. 2 mg every 4 hours p.r.n. Morphine infusion was at 2 mg an hour and 2 mg an hour extra dose as needed p.r.n. Dulcolax suppository t.i.d. p.r.n. [place], [place] DISCHARGE SUMMARY NAME: ALEJANDRO GILBERT UNIT #: [id number] ROOM: 409 DOCTOR: HEMANT RICHARDSON MD BIRTHDATE: [birth year] HEMANT RICHARDSON MD CM:AYALA [id number] HEMANT RICHARDSON MD 08/05/18 2342 interface
--- NOTE | ~2018-08-01 | PR ---
[place], [place] PROGRESS NOTE NAME: ALEJANDRO GILBERT UNIT #: [id number] ROOM: 409 DOCTOR: HEMANT RICHARDSON MD BIRTHDATE: [birth year] DOS: 08/04/2018 SUBJECTIVE: The patient unresponsive most of the time, occasionally would move his hands or make a sound. PHYSICAL EXAMINATION: VITAL SIGNS: Blood pressure 98/48, heart rate of 113 beats per minute, breathing 8 times per minute, afebrile. GENERAL APPEARANCE: Unconsciousness and unresponsiveness. HEENT AND NECK: Exam within normal limits. CARDIOVASCULAR SYSTEM: Heart rate is regular in rate and rhythm. S1 and S2 normally audible. LUNGS: Clear to auscultation. ABDOMEN: Soft, nontender. No obvious organomegaly. Bowel sounds are present. EXTREMITIES: Without significant cyanosis or edema. IMPRESSION: 1. The patient with acute over chronic left temporal infarction with altered mental status, acute respiratory failure, now presently on IV morphine infusion and Ativan as needed and appears comfortable, breathing only 8 times per minute and admitted under care of hospice as an inpatient at [facility]. 2. Advance disability and adult failure to thrive. We are taking bedsore precautions using air mattress and turning the patient every 2 hours. 3. The patient was allowed comfort feeding as tolerated. 4. Constipation being treated with Dulcolax suppositories p.r.n. HEMANT RICHADRSON MD CM:PNTRANS [id number] HEMANT RICHARDSON MD 08/05/18 1710 interface
--- NOTE | ~2018-08-01 | WRIGHTHP ---
[place], [place] PATIENT HISTORY AND PHYSICAL EXAM NAME[id number] UNIT #: [id number] ROOM: 409 DOCTOR: HEMANT RICHARDSON MD BIRTHDATE: [birth year] DOS: 08/01/2018 PAST MEDICAL HISTORY: 1. Chronic urinary retention with chronically indwelling Durán catheter. 2. Alzheimer's type dementia and adult failure to thrive. 3. Previous history of DVT. 4. Major depression, recurrent, mild. 5. History of CVA with carotid artery disease. 6. Benign essential hypertension. HISTORY OF PRESENT ILLNESS: The patient presented to the Emergency Department at [facility] when he was found to be very short of breath, pale and very weak at home. The patient was seen in the Emergency Department and CT of the head showed a new left temporal infarct and evidence of previous cerebral infarcts. The patient's family wanted him to be kept comfortable with hospice only. The patient is on 100% nonrebreather mask for oxygen and looking very weak and unable to communicate. The patient was admitted to a regular bed under the care of hospice, who came to see him in the Emergency Department. REVIEW OF SYSTEMS: RESPIRATORY: Increasing shortness of breath and hypoxemia. GASTROINTESTINAL: No nausea, vomiting, diarrhea or constipation. GENITOURINARY: History of chronic urinary retention and Durán catheter placement with hematuria in the past. CARDIOVASCULAR SYSTEM: No chest pains or palpitations. FAMILY HISTORY: Noncontributory. SOCIAL HISTORY: The patient without any recent history of smoking cigarettes, alcohol and drug abuse. MEDICATIONS: The patient normally takes aspirin, Coreg, vitamin D, iron, finasteride, hydroxyzine, linezolid, losartan, Zoloft, Flomax, trospium at home. PHYSICAL EXAMINATION: GENERAL: The patient is awake, lethargic, unable to communicate, very weak, wearing oxygen via nonrebreather mask at 100%, but able to move all extremities. VITAL SIGNS: Blood pressure of 109/56, heart rate ranging between 80 to 120 beats per minute, breathing 12 to 20 times per minute, temperature of 101.1 degrees Fahrenheit. HEENT AND NECK: Extraocular movements are intact. Sclerae are anicteric. Oral mucosa is moist and clean. No obvious facial weakness. Neck is supple without any lymphadenopathy. No thyromegaly. No JVD. No carotid arterial bruits. LUNGS: Decreased breath sounds. CARDIOVASCULAR SYSTEM: Heart rate is regular in rate and rhythm. S1 and S2 normally audible. No significant murmur or any other abnormal cardiac sounds. ABDOMEN: Soft, nontender. No obvious organomegaly. Bowel sounds are present. No obvious herniation. EXTREMITIES: Without significant cyanosis or edema. Warm to touch. CENTRAL NERVOUS SYSTEM: Alert and oriented x 3. Cranial nerves II-XII are [place], [place] PATIENT HISTORY AND PHYSICAL EXAM NAME: ALEJANDRO GILBERT UNIT #: [id number] ROOM: [facility] DOCTOR: HEMANT RICHARDSON MD BIRTHDATE: [birth year] intact. Speech is normal. The patient is able to move all extremities. Normal muscle strength. Deep tendon reflexes are equal on both sides. Plantars were downgoing. IMPRESSION AND PLAN: 1. The patient with acute left new temporal infarct with previous history of cerebral infarcts with advanced disability and failure to thrive. On family's request was admitted under hospice care to the hospital for end of life care. The patient appeared to be in pain and discomfort, so he was started infusion with IV morphine and also Ativan as needed. No excessive respiratory secretions were observed, so he was not started on atropine drops. 2. Advanced disability and adult failure to thrive. We will take bedsore precautions, use an air mattress and every 2 hour turning. 3. The patient to be allowed comfort feeding as tolerated. 4. Case has been discussed in detail with patient's nurse and also hospice staff. HEMANT RICHARDSON MD CM:HISPHYS:PATIENT HISTORY AND PHYSICAL EXAMINATION [id number] HEMANT RICHARDSON MD 08/01/18 1800 interface
--- NOTE | ~2018-08-01 | EKG ---
[place], [place] ELECTROCARDIOGRAM REPORT NAME: ALEJANDRO GILBERT UNIT #: [id number] ROOM: 409 DOCTOR: RENATO DRAFT REPORT BIRTHDATE: [birth year] [facility] Test Date: 2018-08-01 Test Time: 08:47:35 Pat Name: ALEJANDRO GILBERT Department: Room: 409 Gender: M Tobacco Stripper Hand: Lupe Dodd : 1930 Requested By: GINI STOCK Order Number: [id number] Reading MD: Brayden Dexter MD Measurements Intervals [place] Rate: 117 P: 93 OK: 152 QRS: 193 QRSD: 110 T: -20 QT: 360 QTc: 503 Interpretive Statements Sinus tachycardia Multiple premature complexes, vent \T\ supraven Low voltage, extremity leads Abnormal R-wave progression, late transition Nonspecific T abnormalities, inferior leads Prolonged QT interval Baseline wander in lead(s) V2 Compared to ECG 07/16/2018 20:57:42 Low QRS voltage now present T-wave abnormality now present Prolonged QT interval now present Electronically Signed On 08-02-2018 12:24:31 PST by Brayden Dexter MD CM:EKGRPT:ELECTROCARDIOGRAM REPORT [id number] GINI GROSS DRAFT REPORT GINI STOCK MD
[~2018-08-01 08:16] MED LIST changes: +ACIDOPHILUS1 EAC4 PO; +COZAAR25 M1 PO; +FERRO-TIME325 MG PO; +FLOMAX0.4 MG PO; +NITROFURANTOIN100 M9 PO; +PROSCAR5 M1 PO; +TROSPIUM CHLORI20 M1 PO; +VISTARIL25 MG PO; +VITAMIN D32000 UNIT PO; +ZYVOX600 MG PO
[2018-08-01 09:04] LABS: ABG BASE EXCESS -1.4 mmol/L (-2.0-2.0); ABG HCO3 22.1 mmol/l (22-26); ABG O2 SATURATION 86.3 % (95-97); ARTERIAL BLOOD GAS PCO2 35.7 mmHg (35-45); ARTERIAL BLOOD GAS PH 7.41 (7.35-7.45)
[2018-08-01 09:06] LABS: BASO % 0.2 % (0.0-1.0); EOS % 0.2 % (1.0-4.0); HEMATOCRIT 41.1 % (42.0-52.0); HEMOGLOBIN 13.5 g/dl (14.0-18.0); LYMPH # 0.9 10*3/uL (1.3-4.4); LYMPH % 5.5 % (27.0-41.0); MEAN CELL VOLUME 92.2 fl (80.0-94.0); MEAN CORPUSCULAR HGB 30.3 pg (27.0-31.0); MEAN CORPUSCULAR HGB CONC 32.8 g/dl (33.0-37.0); MEAN PLATELET VOLUME 10.4 fl (9.6-12.3); MONO # 0.7 10*3/uL (0.1-1.0); MONO % 4.3 % (3.0-9.0); NEUT # 14.4 10*3/uL (2.3-7.9); NEUT % 89.4 % (47.0-73.0); PLATELET COUNT AUTOMATED 188 10*3/uL (130-400); RED BLOOD COUNT 4.46 10*6/uL (4.50-5.90); RED CELL DISTRI WIDTH 14.8 % (0-14.5); WHITE BLOOD COUNT 16.1 10*3/uL (4.8-10.8)
[2018-08-01 09:17] LABS: ACT PARTIAL THROMBO TIME 23.6 SECONDS (20.8-31.5); INTERNATIONAL NORM RATIO 1.1 (2.0-3.5)
[2018-08-01 09:27] LABS: ALBUMIN 3.2 gm/dl (3.1-4.5); CREATININE 1.46 mg/dL (0.70-1.30); POTASSIUM 3.3 mmol/L (3.5-5.1); TOTAL PROTEIN 7.6 gm/dL (6.4-8.2)
[2018-08-01 09:29] LABS: TROPONIN I 0.279 ng/ml (<0.045)
[2018-08-02] VITALS (7 sets, daily range): BP systolic 84–117; BP diastolic 42–58
[2018-08-03] VITALS: BP 97/51
[2018-08-03 08:00] VITALS: BP 89/57
[2018-08-03 16:00] VITALS: BP 84/54
[2018-08-04] VITALS: BP 112/35
[2018-08-04 07:46] VITALS: BP 92/43
[2018-08-04 16:00] VITALS: BP 98/48
[2018-08-04 20:00] VITALS: BP 88/48
[2018-08-05] VITALS: BP 112/88
[2018-08-05 08:00] VITALS: BP 117/55
[2018-08-05 16:00] VITALS: BP 75/40
== END 2018-08-05 18:30 | disposition expired | DRG 64 ==
LOC: ED 08:16 → EDHOLD 10:31 → ED 10:31 → 4E 11:06 → EDHOLD 11:06 → 4E 11:06
PROVIDERS: Emergency Medicine
DX: I63.9 Cerebral infarction, unspecified (principal); J96.00 Acute respiratory failure, unspecified whether with hypoxia or hypercapnia; F33.0 Major depressive disorder, recurrent, mild; I69.351 Hemiplegia and hemiparesis following cerebral infarction affecting right dominant side; I50.32 Chronic diastolic (congestive) heart failure; R62.7 Adult failure to thrive; G30.1 Alzheimer's disease with late onset; F02.80 Dementia in other diseases classified elsewhere, unspecified severity, without behavioral disturbance, psychotic disturbance, mood disturbance, and anxiety; Z51.5 Encounter for palliative care; K59.00 Constipation, unspecified; R33.9 Retention of urine, unspecified; Z66 Do not resuscitate; I11.0 Hypertensive heart disease with heart failure; Z96.1 Presence of intraocular lens; Z96.641 Presence of right artificial hip joint; Z87.891 Personal history of nicotine dependence; Z82.49 Family history of ischemic heart disease and other diseases of the circulatory system; Z87.440 Personal history of urinary (tract) infections; Z86.718 Personal history of other venous thrombosis and embolism; Z88.0 Allergy status to penicillin; Z88.2 Allergy status to sulfonamides; Z98.42 Cataract extraction status, left eye; Z98.41 Cataract extraction status, right eye; Z80.9 Family history of malignant neoplasm, unspecified